=== PATIENT | female | born 1935 | race Caucasian/White ===

== ENCOUNTER 2021-07-10 07:48 | Outpatient (CLI) | payer MEDICARE, MEDICAID, SELFPAY ==
--- NOTE | 2021-07-10 08:37 | NMCV_ITS ---
NM festus perf SPECT r/s* [id number] Chen Blakely Age: 86 Gender: F : 1935 Exam Date: 07/10/2021 08:37 Ordering Phys: Noni Brantley CYANIDE FURNACE OPERATOR Technologist: ALISA Plasencia Exam Location: [facility] Indications: CHEST PAIN STRESS TEST Please see separate stress test report in [facility] for full findings IMAGE PROTOCOL Rest/Stress 1 Lexiscan Day Radiopharmaceutical Dose (mCi) Administration Site Administered by Rest: Tc-99m 10.9 IV ALISA Mckeon Sestamibi Stress:Tc-99m 33.0 IV ALISA Canales Sestamibi Rest: 10-Jul-2021 60 Discovery 630 Stress: 10-Jul-2021 30 Discovery 630 0.4mg Lexiscan. Images obtained in supine and prone position. SPECT RESULTS Technical Quality: Good Raw Data Analysis: Normal Image Corrections: No attenuation or motion correction applied Summed Stress Score: 20 Summed Rest Score: 10 Summed Difference Score: 10 PERFUSION FINDINGS Moderate to large area of moderate to severely decreased tracer uptake in the mid and apical inferior, mid inferoseptal, mid anterolateral and all the apical segments. Significant reversibility was noted in these regions. FUNCTIONAL RESULTS (calculated via Gated SPECT) Stress Image LV EF (%): 58 Stress EDV (mL):78 TID: 1.19 Stress ESV (mL):33 FUNCTIONAL FINDINGS: Segmental wall motion analysis revealing mild diffuse hypokinesia of the LV apex IMPRESSIONS 1. Myocardial perfusion imaging revealing moderate to large area of moderately severe decreases uptake in the inferior, inferoseptal, anteroseptal and all the apical segments with significant reversibility, suggestive of myocardial scarring with ischemia in the distribution of the right coronary artery and the left anterior descending arteries predominantly with some involvement of the circumflex artery. 2. Normal LV ejection fraction 58%. 3. LV wall motion analysis revealing mild diffuse hypokinesia of the LV apex. 4. Normal LV volume. 5. Elevated transient ischemic dilatation ratio also may suggest endocardial ischemia. No similar previous studies are available for comparison Dr Sheba Cortez MD [facility] (Electronically Signed) Final Date: 10 July 2021 14:56 S
[2021-07-10 08:38] VITALS: BMI 24.7
[2021-07-10 10:37] VITALS: BP 121/67; PULSE 81
[2021-07-10] MEDS: regadenoson 0.4 Mg/5 ml Syringe IVP (10:37)
== END 2021-07-10 07:49 | disposition home or self-care (01) ==
LOC: RAD 08:05
PROVIDERS: PCP Nurse Practitioner Family; Visit Provider Nurse Practitioner Family
DX: R07.9 Chest pain, unspecified (principal); R06.02 Shortness of breath
CPT/HCPCS: 78452; 93017; A9500; J2785

== ENCOUNTER 2021-07-11 10:58 | Inpatient (IN) | payer MEDICARE, MEDICAID, SELFPAY ==
--- NOTE | 2021-07-11 11:09 | XR_ITS ---
WS: [id number] PORTABLE CHEST HISTORY: chest pain COMPARISON: 12/18/2015 Lungs are clear and well expanded. Mild pleural thickening at the apices bilaterally. Similar to the prior study. No pleural effusion or pneumothorax. Cardiac size: Normal. Mediastinum/Aorta: Mildly ectatic aorta. No mediastinal widening. Bones are demineralized and osteopenic. 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 XR/XR chest 1V portable [id number] IMPRESSION: No acute cardiopulmonary disease. Stable chest.
--- NOTE | 2021-07-11 11:09 | ECG_ITS ---
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: : 1935 Requested By: Helena Fernandez Order Number: [id number] Reading MD: ELIJAH HERNÁNDEZ Measurements Intervals [place] Rate: 67 P: 48 NV: 188 QRS: 11 QRSD: 110 T: -60 QT: 427 QTc: 453 Interpretive Statements SINUS RHYTHM WITH OCCASIONAL VENTRICULAR PREMATURE COMPLEXES ST DEVIATION AND MODERATE T-WAVE ABNORMALITY, CONSIDER ANTEROLATERAL ISCHEMIA [-0.1+ mV T-WAVE IN V3-V6] ST DEVIATION AND MODERATE T-WAVE ABNORMALITY, CONSIDER INFERIOR ISCHEMIA [-0.1+ mV T-WAVE IN II/aVF] Compared to ECG 12/18/2015 11:36:22 Ventricular premature complex(es) now present T-wave abnormality now present Possible ischemia now present Electronically Signed On 07-12-2021 17:45:59 HAND BOBBIN CLEANER by ELIJAH HERNÁNDEZ [id number]
[2021-07-11 11:11] VITALS: BP 171/83; PULSE 71; RESP 16; TEMP 36.8; O2SAT 96
--- NOTE | 2021-07-11 11:28 | W.ED.CHESTPA ---
HPI - Chest Pain General: Chief Complaint: Chest Pain Stated Complaint: Pain across chest, stress test yesterday Time Seen by Provider: 07/11/21 11:18 Source: patient Mode of arrival: ambulatory History of Present Illness: 86-year-old female presents emergency room with complaints of chest discomfort. Is difficult to get her is very specific at all. Try to get a grasp on when she started getting increased chest discomfort. She does not really understand the question states she has had chest discomfort since the first of the month. When I asked her if she had any chest discomfort at the end of her stress test she said no but had some when she woke up at 1:00 this morning. But she states she did not think it caused her to wake up. She states she almost always has chest discomfort at the same level and goes back to it having started the first of the year. She does get radiation of the discomfort into the left side of her neck at times not into the arms. She states she is chronically short of breath and that has not really changed at all she has not been diaphoretic with no nausea or vomiting. She not had any previous known coronary artery disease. Is difficult to get her to rate it with a number for her discomfort. When pressed further I get the sense that the biggest reason she came into my she received a call nurse practitioner and was told that the stress test that she took yesterday was positive. MD complaint: chest discomfort Onset (ago): week(s) Timing of current episode: episodic Prior episodes: Yes Onset: during rest Pain location: substernal and left chest Pain radiation: neck Severity: mild Quality: tightness, aching and heaviness Relieving factors: nothing Exacerbating factors: nothing Context: other (Lexiscan sestamibi stress test done yesterday.) Associated symptoms: Deny abdominal pain, diaphoresis, dyspnea, fever(s), leg edema, nausea, palpitations, sense of impending doom, syncope or vomiting Treatment prior to arrival: none Review of Systems Const: Denies: fever(s) or diaphoresis ENMT: Denies: throat pain, ear or mastoid pain, nasal discharge or nasal congestion Card: Reports: chest pain; Denies: palpitations, edema or syncope Resp: Denies: dyspnea GI: Denies: abdominal pain, nausea or vomiting : Denies: flank pain, difficulty voiding, dysuria, urinary frequency or urinary urgency Skin/Breast: Denies: rash or pruritus PFSH ED PFSH: Medical History Hypertension Social History Alcohol intake: never Physical Exam Const: COMMON NORMALS: no acute distress GENERAL APPEARANCE: cooperative and comfortable ORIENTATION/CONSCIOUSNESS: Yes awake, Yes oriented to person, Yes oriented to place and Yes oriented to time HENMT: COMMON NORMALS: normocephalic, atraumatic and hearing grossly normal bilaterally HEAD & SCALP: normocephalic and atraumatic Neck/C-Spine: COMMON NORMALS: no JVD Lymph: LYMPHATIC: no lymphadenopathy noted and no lymphedema noted Resp: COMMON NORMALS: normal respiratory effort, No retractions, No use of accessory muscles and clear to auscultation bilaterally AUSCULTATION: clear to auscultation bilaterally Cardio: COMMON NORMALS: no JVD, regular rate, regular rhythm and No murmurs present (Cardio) RATE: regular rate RHYTHM: regular rhythm GI: COMMON NORMALS: Soft to palpation and No hepatosplenomegaly present AUSCULTATION: Yes normoactive bowel sounds PALPATION: Yes Soft to palpation, No Tenderness to palpation present (GI), No Guarding due to palpation present (GI) and Yes No hepatosplenomegaly present Extremity: COMMON NORMALS: normal to inspection, capillary refill normal, no clubbing, cyanosis or edema, no calf tenderness and no pedal edema Neuro: SENSORIUM/ORIENTATION: Yes oriented to person, Yes oriented to place and Yes oriented to time Skin: COMMON NORMALS: no rashes or lesions noted GENERAL SKIN EXAM: no rashes or lesions noted Course Vital Signs: Vital signs: Vital Signs Temperature 97.2 F L 07/13/21 14:47 Pulse Rate 79 07/13/21 14:47 Respiratory Rate 20 H 07/13/21 14:47 Blood Pressure 168/88 07/13/21 14:47 Pulse Oximetry 97 07/13/21 14:47 MDM - Chest Pain Medical Decision Making Patient has ST depression on her initial EKG troponin is elevated. Chest pain resolved with nitro topically. Her first troponin is markedly elevated her second troponin is increased significantly from her base of her first with a positive delta troponin of 123. Discussed with hospitalist also discussed with Dr. Deluca on-call he advised to treat like an NSTEMI patient is still not having any ST elevation on her EKG at this pointShe does have anterior lateral ischemia with T wave inversion. Dr. Gonzales is aware and has reviewed the EKGs orders are written. Medical Records I reviewed the patient's medical records. Lab Data I reviewed the patient's lab results. : 07/13/21 04:17 07/13/21 04:17 Radiology Impressions Chest X-Ray 07/11/21 11:09 IMPRESSION: No acute cardiopulmonary disease. Stable chest. Laboratory Results WBC 8.6 10^3/uL (4.0-10.0) 07/11/21 11:23 RBC 4.34 10^6/uL (4.1-5.3) 07/11/21 11:23 Hgb 15.0 g/dL (11.5-15.3) 07/11/21 11:23 Hct 45.2 % (37.0-47.0) 07/11/21 11:23 MCV 104.1 fl (81-99) H 07/11/21 11:23 MCH 34.6 pg (28.0-34.0) H 07/11/21 11:23 MCHC 33.2 g/dL (30.0-36.0) 07/11/21 11:23 RDW 12.2 % (12.1-15.1) 07/11/21 11:23 Plt Count 248 10^3/cmm (130-400) 07/11/21 11:23 MPV 9.5 fL (7.4-10.4) 07/11/21 11:23 Neut % (Auto) 66.9 % 07/11/21 11:23 Lymph % (Auto) 24.9 % 07/11/21 11:23 [place] % (Auto) 6.5 % 07/11/21 11:23 Eos % (Auto) 0.9 % 07/11/21 11:23 Baso % (Auto) 0.5 % 07/11/21 11:23 Neut # (Auto) 5.75 10^3/uL (1.8-7.7) 07/11/21 11:23 Lymph # (Auto) 2.1 10^3/uL (0.8-4.8) 07/11/21 11:23 [place] # (Auto) 0.6 10^3/uL (0.2-0.9) 07/11/21 11:23 Eos # (Auto) 0.1 10^3/uL (0.0-0.8) 07/11/21 11:23 Baso # (Auto) 0.0 10^3/uL (0.0-0.1) 07/11/21 11:23 Nucleated RBC % (auto) 0 % 07/11/21 11:23 Nucleated RBCs # 0.0 /100WBC 07/11/21 11:23 Sodium 137 mmol/L (136-145) 07/11/21 12:04 Potassium 3.7 mmol/L (3.5-5.1) 07/11/21 12:04 Chloride 104 mmol/L (98-107) 07/11/21 12:04 Carbon Dioxide 21 mmol/L (22-29) L 07/11/21 12:04 Anion Gap 15.7 (5-19) 07/11/21 12:04 BUN 14 mg/dL (8-23) 07/11/21 12:04 Creatinine 0.6 mg/dL (0.5-0.9) 07/11/21 12:04 GFR Calculation Not Reportable 07/11/21 12:04 Glucose 106 mg/dL (65-115) 07/11/21 12:04 Estimat Average Glucose 111 07/11/21 11:23 Hemoglobin A1c 5.5 % (4.0-6.0) 07/11/21 11:23 Calculated Osmolality 285 mOsm/kg (285-295) 07/11/21 12:04 Calcium 8.4 mg/dL (8.5-10.5) L 07/11/21 12:04 Troponin T Baseline 445 ng/L (0-10) H* 07/11/21 12:04 Troponin T 120 Minute 567.8 ng/L (0-10) H 07/11/21 14:24 Delta Troponin T 122.8 ABS# (0-10) H* 07/11/21 14:24 NT-Pro-B Natriuret Pep 1993 pg/mL (0-450) H 07/11/21 12:04 Triglycerides 108 mg/dL (0-150) 07/11/21 12:04 Cholesterol 203 mg/dL (0-200) H 07/11/21 12:04 LDL Cholesterol, Calc 143 mg/dL (50-129) H 07/11/21 12:04 HDL Cholesterol 38 mg/dL (60-100) L 07/11/21 12:04 LDL/HDL Ratio 3.76 RATIO (0.00-3.22) H 07/11/21 12:04 Cholesterol/HDL Ratio 5.34 mg/dL (0.0-4.40) H 07/11/21 12:04 Discharge Plan Discharge Patient Disposition: Admitted As Inpatient Admit Provider: Ludy Centeno Clinical Impression: Unstable angina pectoris, Non-ST elevation ND (NSTEMI), Benign essential HTN Condition: Stable Discharge Diet: Cardiac, Low Salt and Low Cholesterol Discharge Activity: Increase activity as tolerated Coding Level of Care Code ED Major Account Representative for Elena Fwd Exam Comprehensive
[2021-07-11 11:34] LABS: Basophils % 0.5 %; Eosinophils # 0.1 10^3/uL (0.0-0.8); Eosinophils % 0.9 %; Hematocrit 45.2 % (37.0-47.0); Lymphocytes # 2.1 10^3/uL (0.8-4.8); Lymphocytes % 24.9 %; Mean Corpuscular HGB Conc 33.2 g/dL (30.0-36.0); Mean Corpuscular Hemoglobin 34.6 pg (28.0-34.0); Mean Corpuscular Volume 104.1 fl (81-99); Mean Platelet Volume 9.5 fL (7.4-10.4); Monocytes # 0.6 10^3/uL (0.2-0.9); Monocytes % 6.5 %; Neutrophils # 5.75 10^3/uL (1.8-7.7); Neutrophils % 66.9 %; Nucleated Red Blood Cells % 0 %; Platelet Count 248 10^3/cmm (130-400); Red Blood Count 4.34 10^6/uL (4.1-5.3); Red Cell Distribution Width 12.2 % (12.1-15.1); White Blood Count 8.6 10^3/uL (4.0-10.0)
[2021-07-11] MEDS: aspirin 81 mg Chew Tablet 324 MG PO (11:48)
[2021-07-11 11:49] VITALS: BP 175/78; PULSE 71; RESP 14; O2SAT 94
--- NOTE | 2021-07-11 11:50 | PC.NURSE ---
Continuous cardiac, BP, and SpO2 monitoring initiated upon arrival.
[2021-07-11 13:03] LABS: Anion Gap 15.7 (5-19); Blood Urea Nitrogen 14 mg/dL (8-23); Calcium 8.4 mg/dL (8.5-10.5); Carbon Dioxide 21 mmol/L (22-29); Chloride 104 mmol/L (98-107); Glucose 106 mg/dL (65-115); Osmolality Calculated 285 mOsm/kg (285-295); Potassium 3.7 mmol/L (3.5-5.1); Sodium 137 mmol/L (136-145)
[2021-07-11 13:08] LABS: Troponin(5th) Baseline 445 ng/L (0-10)
--- NOTE | 2021-07-11 13:09 | ECG_ITS ---
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: : 1935 Requested By: Helena Fernandez Order Number: [id number] Reading MD: ELIJAH HERNÁNDEZ Measurements Intervals [place] Rate: 65 P: 38 VT: 176 QRS: 12 QRSD: 94 T: 254 QT: 419 QTc: 439 Interpretive Statements SINUS RHYTHM WITH OCCASIONAL VENTRICULAR PREMATURE COMPLEXES ST DEVIATION AND MODERATE T-WAVE ABNORMALITY, CONSIDER ANTEROLATERAL ISCHEMIA [-0.1+ mV T-WAVE IN V3-V6] ST DEVIATION AND MODERATE T-WAVE ABNORMALITY, CONSIDER INFERIOR ISCHEMIA [-0.1+ mV T-WAVE IN II/aVF] Compared to ECG 12/18/2015 11:36:22 Ventricular premature complex(es) now present T-wave abnormality now present Possible ischemia now present Electronically Signed On 07-12-2021 17:47:27 FEATHER DRYING MACHINE OPERATOR by ELIJAH HERNÁNDEZ [id number]
[2021-07-11] MEDS: heparin 5,000 unit/mL INJ 1 mL 4000 UNIT IVP (13:21)
[2021-07-11] MEDS: heparin drip 25,000 UNIT/500 ML PREMIX 16.89 UNIT IV (13:21)
[2021-07-11] MEDS: nitroglycerin 1 gm/inch oint Pkt 1 INCH TOPICAL (13:21)
[2021-07-11 13:28] VITALS: BP 151/65; PULSE 70; RESP 18; O2SAT 95
[2021-07-11 15:22] LABS: Troponin 5 2HR 567.8 ng/L (0-10); Troponin 5 2HR Delta 122.8 ABS# (0-10)
--- NOTE | 2021-07-11 16:57 | PM.HP ---
Providers/Chief Complaint Admitting Physician: Ludy Centeno MD Primary Care Provider: GARIMA Le Chief Complaint: Pain across chest, stress test yesterday History of Present Illness Chen Blakely is a 86 year old female Who has been experiencing progressively increasing shortness of breath and on and off chest pain since beginning of this month, underwent a stress test as outpatient on the recommendation of her primary care provider yesterday which turned out to be abnormal. Presented to the ER due to chief complaint of chest comfort and inability to breathe. She describes this as a central chest pressure, nonradiating, started to be worse at around 1 AM this morning. She does not have any past history of known coronary artery disease. When asked specifically about pain, describes the sensation as mostly being short of breath. No swelling recently in lower extremities around the face. Presented to the ER where and she was noted to have NSTEMI. EKG shows T wave inversion in leads V3 through V6. trop baseline 445, 2 hr delta 122. Review of Systems General: Reports: 10 or more systems reviewed and unremarkable except in HPI and below Const: Denies: fever(s), chills or body aches Eyes: Denies: change in vision, blurry vision or photophobia ENMT: Reports: hoarseness; Denies: throat pain, enlarged tonsils, odynophagia or nasal congestion Card: Denies: chest pain, palpitations, irregular heart rhythm, edema, swelling of feet/ankles, lightheadedness, pre-syncope, dyspnea on exertion or orthopnea Resp: Denies: dyspnea, productive cough, non-productive cough, wheezing, stridor, pain on inspiration, change in phlegm color, hemoptysis or chest congestion GI: Denies: abdominal pain, nausea, vomiting, hematemesis, coffee ground emesis, dysphagia, heartburn, diarrhea, constipation, GI cramping, change in stool character, hematochezia or melena : Denies: flank pain, difficulty voiding, dysuria, urinary frequency, urinary urgency, urinary hesitancy or hematuria Musc: Denies: neck pain, back pain, extremity pain, joint swelling, joint warmth or deformity Neuro: Denies: headache(s), numbness in extremities, weakness in extremities, sensory changes, difficulty walking, frequent falls, dizziness, vertigo, behavioral changes, Slurred speech present or seizure-like activity Psych: Denies: anxiety, depression, suicidal ideation or homicidal ideation Endo: Denies: polyuria, polydipsia, tired all the time, cold intolerance or hot flashes Gabriel/Lymph: Denies: easy bruising or easy bleeding Medications/Allergies Home Medications Medication Instructions Recorded Confirmed Last Taken Type atenolol 25 mg tablet 12.5 mg PO QAM 07/11/21 07/11/21 07/11/21 History cetirizine 10 mg tablet 10 mg PO EVERY OTHER DAY 07/11/21 07/11/21 Unknown History dicyclomine 10 mg capsule 10 mg PO QAM 07/11/21 07/11/21 07/11/21 History docusate sodium 100 mg capsule 100 mg PO EVERY OTHER DAY PRN 07/11/21 07/11/21 Unknown History (Colace) fluticasone propionate 50 See Rx Instructions .ROUTE .COMPLEX 07/11/21 07/11/21 Unknown History mcg/actuation nasal spray,suspension ibuprofen 200 mg tablet 400 mg PO BID@07/11/21 07/11/21 07/10/21 History multivit with 1 tab PO DAILY@07/11/21 07/11/21 07/10/21 History flruijug-hjtj-BW-lutein 8 mg iron-400 mcg-300 mcg tablet (Centrum Silver Women) omeprazole 20 mg capsule,delayed 20 mg PO DAILY@07/11/21 07/11/21 07/10/21 History release spironolactone 25 mg tablet 25 mg PO QAM 07/11/21 07/11/21 07/11/21 History Allergies Allergy/AdvReac Type Severity Reaction Status Date / Time No Known Allergies Allergy Verified 07/11/21 14:19 PFSH Acute PFSH: Medical History Hypertension Social History Alcohol intake: never Vitals/I&O/Wt Last Vital Signs Temp 98.3 F 07/11/21 11:11 Pulse 70 07/11/21 13:28 Resp 18 07/11/21 13:28 BP 151/65 07/11/21 13:28 Pulse Ox 95 07/11/21 13:28 Weight last 48 hrs Weight 60.328 kg Physical Exam Narrative: EXAM NARRATIVE: General: No acute distress, AO x3 HEENT: PERRLA, pupils bilaterally equal and reactive, pallors not present Chest: Normal vesicular breath sounds, no added sounds, equal good air entry bilaterally CVS: S1-S2 regular, no murmurs, no tachycardia, no gallops, no rubs Abdomen: Soft, nontender, no organomegaly, bowel sounds present Neuro: No focal deficits, no facial deformity, AO x3, power 5/5 in all limbs Extremities: no edema,clubbing or cyanosis Data : 07/11/21 11:23 07/11/21 12:04 Other data: IMPRESSIONS ?1.? Myocardial perfusion imaging revealing moderate to large area of moderately ?severe decreases uptake in the inferior, inferoseptal, anteroseptal and all the ?apical segments with significant reversibility, suggestive of myocardial ?scarring with ischemia in the distribution of the right coronary artery and the ?left anterior descending arteries predominantly with some involvement of the ?circumflex artery. ?2.? Normal LV ejection fraction 58%. ?3.? LV wall motion analysis revealing mild diffuse hypokinesia of the LV apex. ?4.? Normal LV volume. ?5.? Elevated transient ischemic dilatation ratio also? may suggest endocardial ?ischemia.? ?No similar previous studies are available for comparison A&P Assessment and plan (1) NSTEMI (non-ST elevated myocardial infarction): Patient presenting today with chest pain and feeling of dyspnea. Found to have NSTEMI with EKG changes as described above and significant elevation of troponin in the 400 range and +2-hour delta. Pain is currently well controlled, patient feels better after being placed on a nitro patch and given some morphine. She had abnormal stress test on July 10, results as noted above. Started on a heparin infusion in the ER which will be continued. Aspirin 324 mg given, continue aspirin 81 mg p.o. daily. Start atorvastatin 40 mg p.o. daily. Cardiology consult to assess for possible angiogram and intervention. Nitropatch 1 inch topical every 6 hours. Currently saturating well 95% on room air Check lipid panel HbA1c. Continue home dose of atenolol. Status: Acute Attestations Medical Necessity Statement*: Patient will require greater than 2 midnight admission for management of NSTEMI, possible cardiac cath. Coding Level of Care Code Acute Aircraft Stress Analyst for Chg Fwd Diagnoses NSTEMI (non-ST elevated myocardial infarction) I21.4
--- NOTE | 2021-07-11 17:09 | ECG_ITS ---
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1935 Requested By: Helena Fernandez Order Number: [id number] Reading MD: ELIJAH HERNÁNDEZ Measurements Intervals [place] Rate: 70 P: 49 [place]: 166 QRS: -6 QRSD: 98 T: -51 QT: 406 QTc: 439 Interpretive Statements SINUS RHYTHM WITH OCCASIONAL VENTRICULAR PREMATURE COMPLEXES MODERATE T-WAVE ABNORMALITY, CONSIDER ANTEROLATERAL ISCHEMIA [-0.1+ mV T-WAVE IN V3-V6] MODERATE T-WAVE ABNORMALITY, CONSIDER INFERIOR ISCHEMIA [-0.1+ mV T-WAVE IN II/aVF] Compared to ECG 07/11/2021 13:07:16 No significant changes Electronically Signed On 07-12-2021 17:47:05 BUSINESS SYSTEMS ADVISOR by ELIJAH HERNÁNDEZ [id number]
[2021-07-11 18:09] LABS: Chol HDL Ratio 5.34 mg/dL (0.0-4.40); Cholesterol 203 mg/dL (0-200); HDL Cholesterol 38 mg/dL (60-100); LDL Cholesterol Calculated 143 mg/dL (50-129); LDL HDL Ratio 3.76 RATIO (0.00-3.22); NT Pro B Type Natriuretic Pept 1993 pg/mL (0-450); Triglycerides 108 mg/dL (0-150)
[2021-07-11 19:32] LABS: Troponin 5 6HR 597.6 ng/L (0-10); Troponin 5 6HR Delta 152.6 ng/L (0-12)
[2021-07-11 19:41] LABS: Estmated Average Glucose 111; Hemoglobin A1C 5.5 % (4.0-6.0)
[2021-07-11 20:18] LABS: Partial Thromboplastin Time 173.2 SECONDS (23.9-36.7)
[2021-07-11 20:19] VITALS: BP 143/73; PULSE 81; RESP 17; O2SAT 91
--- NOTE | 2021-07-11 20:31 | PC.NURSE ---
Informed Dr Cervantes of PTT of 173.2. Patient currently on heparin drip. Received telephone orders to stop drip for 4 hours and recheck PTT at that time. Will resume at current rate after PTT without bolus. RBVO
[2021-07-11] MEDS: atorvastatin 40 mg Tablet PO (20:54)
[2021-07-11] MEDS: acetaminophen 325 mg Tablet 650 MG PO (20:54)
--- NOTE | 2021-07-11 20:56 | PM.CONSULT ---
Providers/Reason For Consult Consulting Physician/Specialty*: Cardiology Reason for Consult*: Non-ST elevation [place] Requesting Physician: Dr. Centeno Attending Physician: Ludy Centeno MD Primary Care Provider: GARIMA Le History of Present Illness History of Present Illness Chen Blakely is a 86 year old female past medical history significant for hypertension hyperlipidemia who for anginal symptoms underwent stress test yesterday which showed Ischemia in the region of RCA and LAD territory upon return to home started having more frequent chest pains with shortness of breath. Today when pain became more consistent she came to the ER she was noted to have T wave inversion in anterolateral leads at the same time cardiac markers become positive suggestive of non-ST elevation SD. Patient was treated as per ACS protocol, currently she is chest pain-free. We are planning to proceed with left heart cath. Review of Systems General: Reports: 10 or more systems reviewed and unremarkable except in HPI and below Const: Denies: fever(s), chills, body aches or diaphoresis Eyes: Denies: change in vision, blurry vision or photophobia ENMT: Reports: hoarseness; Denies: throat pain, enlarged tonsils, odynophagia, ear or mastoid pain, nasal discharge or nasal congestion Card: Denies: chest pain, palpitations, irregular heart rhythm, edema, swelling of feet/ankles, lightheadedness, syncope, pre-syncope, dyspnea on exertion or orthopnea Resp: Denies: dyspnea, productive cough, non-productive cough, wheezing, stridor, pain on inspiration, change in phlegm color, hemoptysis or chest congestion GI: Denies: abdominal pain, nausea, vomiting, hematemesis, coffee ground emesis, dysphagia, heartburn, diarrhea, constipation, GI cramping, change in stool character, hematochezia or melena : Denies: flank pain, difficulty voiding, dysuria, urinary frequency, urinary urgency, urinary hesitancy or hematuria Musc: Denies: neck pain, back pain, extremity pain, joint swelling, joint warmth or deformity Skin/Breast: Denies: rash or pruritus Neuro: Denies: headache(s), numbness in extremities, weakness in extremities, sensory changes, difficulty walking, frequent falls, dizziness, vertigo, behavioral changes, Slurred speech present or seizure-like activity Psych: Denies: anxiety, depression, suicidal ideation or homicidal ideation Endo: Denies: polyuria, polydipsia, tired all the time, cold intolerance or hot flashes Gabriel/Lymph: Denies: easy bruising or easy bleeding Medications/Allergies Home Medications Medication Instructions Recorded Confirmed Last Taken Type atenolol 25 mg tablet 12.5 mg PO QAM 07/11/21 07/11/21 07/11/21 History cetirizine 10 mg tablet 10 mg PO EVERY OTHER DAY 07/11/21 07/11/21 Unknown History dicyclomine 10 mg capsule 10 mg PO QAM 07/11/21 07/11/21 07/11/21 History docusate sodium 100 mg capsule 100 mg PO EVERY OTHER DAY PRN 07/11/21 07/11/21 Unknown History (Colace) fluticasone propionate 50 See Rx Instructions .ROUTE .COMPLEX 07/11/21 07/11/21 Unknown History mcg/actuation nasal spray,suspension ibuprofen 200 mg tablet 400 mg PO BID@07/11/21 07/11/21 07/10/21 History multivit with 1 tab PO DAILY@07/11/21 07/11/21 07/10/21 History [id number] 8 mg iron-400 mcg-300 mcg tablet (Centrum Silver Women) omeprazole 20 mg capsule,delayed 20 mg PO DAILY@07/11/21 07/11/21 07/10/21 History release spironolactone 25 mg tablet 25 mg PO QAM 07/11/21 07/11/21 07/11/21 History aspirin 81 mg tablet,delayed 81 mg PO DAILY #90 tab 07/13/21 Unknown Rx release clopidogrel 75 mg tablet 75 mg PO DAILY #90 tab 07/13/21 Unknown Rx pantoprazole 40 mg tablet,delayed 40 mg PO DAILY #90 tab 07/13/21 Unknown Rx release (Protonix) atorvastatin 40 mg tablet See Rx Instructions .ROUTE 07/14/21 Unknown Rx .COMPLEX #90 tab lisinopril 5 mg tablet See Rx Instructions .ROUTE 07/14/21 Unknown Rx .COMPLEX #90 tab Allergies Allergy/AdvReac Type Severity Reaction Status Date / Time No Known Allergies Allergy Verified 07/11/21 14:19 Current Medications Generic Name Dose Route Start Last Admin Trade Name Freq PRN Reason Stop Dose Admin Acetaminophen 650 mg 07/11/21 16:57 07/11/21 20:54 Acetaminophen 325 Mg Tablet PO 650 mg Q6H PRN Administration Mild/Mod Pain Or Temp >/= 101 Atorvastatin Calcium 40 mg 07/11/21 21:00 07/11/21 20:54 Atorvastatin 40 Mg Tablet PO 40 mg BEDTIME CHICO Administration Heparin Sodium/Sodium Chloride 25,000 unit in 500 mls @ 0 mls/hr 07/11/21 13:15 07/11/21 20:31 Heparin Drip IV 0 unit/kg/hr .Q0M CHICO 0 mls/hr Titration Protocol Per Protocol Nitroglycerin 0.5 inch 07/11/21 19:06 07/11/21 20:55 Nitroglycerin 1 Gm/Inch Oint Pkt TOPICAL Not Given Q6H CHICO PFSH Acute PFSH: Medical History Hypertension Social History Alcohol intake: never Vitals/I&O/Wt Last Vital Signs Temp 98.3 F 07/11/21 11:11 Pulse 81 07/11/21 20:19 Resp 17 07/11/21 20:19 BP 143/73 07/11/21 20:19 Pulse Ox 91 07/11/21 20:19 07/11/21 07/11/21 07/11/21 06:59 14:59 22:59 Intake Total 121.045 / 121.045 Balance 121.045 / 121.045 Weight last 48 hrs Weight 133 lb Physical Exam Chest: OTHER: GENERAL: Patient is alert, awake and oriented x3. NECK: No jugular vein distension. HEENT: No cyanosis. No icterus. No pallor. HEART: Regular S1 and S2. No murmur, rub or gallop. LUNGS: Clear to auscultate bilaterally. ABDOMEN: Soft, nontender and nondistended. Positive bowel sounds. No guarding, rebound or tenderness. CENTRAL NERVOUS SYSTEM: Grossly nonfocal. EXTREMITIES: Lower extremities without edema bilaterally. Data : 07/13/21 04:17 07/13/21 04:17 A&P Assessment and plan (1) NSTEMI (non-ST elevated myocardial infarction): Patient was ruled in for acute coronary syndrome continue aspirin statin beta-geo, will load her with the Plavix. Echocardiogram will be obtained for LV function. We will proceed with left heart cath/PCI if indicated in the morning. Further plan will be devised as per progress of the patient. Patient has been explained and all risk benefit and alternative for the procedure. She would like to proceed with it Status: Resolved (2) Hypertension: Well-controlled continue medicine. Status: Acute Consult Attestations Medical Necessity Statement: Patient require continuation hospitalization for above defined care Coding Level of Care Code New Pt Acute Fitness Club Manager for Chg Fwd Patient Type New History Detailed Exam Detailed Medical Decision Making Moderate Complexity Diagnoses NSTEMI (non-ST elevated myocardial infarction) I21.4 Hypertension I10
[2021-07-11 21:46] VITALS: BMI 23.9
[2021-07-11 22:05] VITALS: PULSE 79
[2021-07-11] MEDS: clopidogrel 300 mg Tablet PO (22:28)
[2021-07-11 22:42] VITALS: BP 139/70; PULSE 72; RESP 22; O2SAT 93
[2021-07-12] VITALS (49 sets, daily range): BP systolic 105–164; BP diastolic 62–86; PULSE 66–92; RESP 13–29; TEMP 36.2–37.4; O2SAT 86–95
[2021-07-12 01:22] LABS: Basophils # 0.1 10^3/uL (0.0-0.1); Basophils % 0.5 %; Eosinophils # 0.2 10^3/uL (0.0-0.8); Eosinophils % 1.6 %; Hematocrit 36.3 % (37.0-47.0); Hemoglobin 12.3 g/dL (11.5-15.3); Lymphocytes # 2.8 10^3/uL (0.8-4.8); Lymphocytes % 28.7 %; Mean Corpuscular HGB Conc 33.9 g/dL (30.0-36.0); Mean Corpuscular Volume 103.4 fl (81-99); Mean Platelet Volume 9.9 fL (7.4-10.4); Monocytes # 0.7 10^3/uL (0.2-0.9); Monocytes % 6.8 %; Neutrophils % 62.1 %; Nucleated Red Blood Cells % 0 %; Platelet Count 203 10^3/cmm (130-400); Red Blood Count 3.51 10^6/uL (4.1-5.3); Red Cell Distribution Width 12.3 % (12.1-15.1); White Blood Count 9.8 10^3/uL (4.0-10.0)
[2021-07-12 01:29] LABS: Partial Thromboplastin Time 45.3 SECONDS (23.9-36.7)
[2021-07-12 01:32] LABS: Chloride 107 mmol/L (98-107); Potassium 4.3 mmol/L (3.5-5.1); Sodium 141 mmol/L (136-145)
[2021-07-12 01:44] LABS: Alanine Aminotransferase 18 U/L (0-33); Albumin Level 3.4 g/dL (3.5-5.2); Alkaline Phosphatase 48 IU/L (35-105); Anion Gap 15.9 (5-19); Aspartate Amino Transferase 33 U/L (0-32); Blood Urea Nitrogen 17 mg/dL (8-23); Calcium 8.8 mg/dL (8.5-10.5); Carbon Dioxide 22 mmol/L (22-29); Globulin 2.1 g/dL (1.3-4.6); Glucose 106 mg/dL (65-115); Osmolality Calculated 288 mOsm/kg (285-295); Total Bilirubin 0.3 mg/dL (0.15-1.2); Total Protein 5.5 g/dL (6.6-8.7)
--- NOTE | 2021-07-12 02:07 | PC.NURSE ---
PTT 45.3 Restarted heparin drip at 17ml/hr with no bolus given per Dr Cervantes.
[2021-07-12] MEDS: spironolactone 25 mg Tablet PO (05:06)
[2021-07-12] MEDS: diphenhydrAMINE 50 mg Capsule PO (07:53)
--- NOTE | 2021-07-12 07:53 | XACV_ITS ---
Exam Room: [facility] Ht: 157 cm Wt: 59 kg BSA: 1.62 m2 Gender: Female : 1935 Exam Priority: Routine Procedure(s): Procedure Description: Diagnostic procedure Procedure Description: PCI procedure Procedure Description: Drug Eluting Coronary Stent Procedure Description: PTCA Procedure Description: Miscellaneous Procedure Description: ACT Procedure Description: Coronary Angiography Diagnostic Cath Status: Urgent Diagnostic Findings * Left Main has no disease. * Circumflex has no disease. * Proximal Left Anterior Descending: subtotal occlusion, RONEY: 2 flow. * Mid Left Anterior Descending to Distal Left Anterior Descending: subtotal occlusion, RONEY: 0 flow. * Mid Right Coronary Artery: severe 90% stenosis, RONEY: 3 flow. * Distal Right Coronary Artery to Distal Left Anterior Descending collaterallization. * Coronary angiography shows left dominance. PCI Status: Urgent PCI Indication: NSTE - ACS Interventional Findings * Proximal Left Anterior Descendin% stenosis treated with a AB TREK 2.50X12 RX BALLOON, and NADEGE Lacy JP 2.75X15 RADHA. 0% residual stenosis, RONEY: 3 flow. Conclusions 1. There is subtotal occlusion coronary artery disease with two vessel disease. 2. Proximal Left Anterior Descending was treated with a Balloon, and Drug Eluting Stent. 3. Left anterior descending artery is chronically occluded in the mid to distal segment which is an atretic vessel. Diagonal branch is a large palpable vessel. Proximal LAD has significant 99% subtotal occlusion with RONEY II flow. Left main and circumflex does not have significant stenosis. RCA is nondominant occluded vessel in the mid with [id number] collaterals.. Recommendations * 1-Return to inpatient for close monitoring and routine cath care 2-Risk factor modification for secondary prevention 3-Statin and aspirin 81 mg life--long, if tolerated 4-Continue Plavix 75mg p.o. daily for at least one year. We will assess at the end of one year again to continue if further or not 5-Continue optimal medical management 6-Follow up with cardiology in four weeks and your primary care in 10 days. Interventional RX Recommendation: PCI w/o planned CABG Diagnostic RX Recommendation: PCI w/o planned CABG Pressures Phase:Rest AO : 138 / 65 ( 96 ) @ 7:48:00 AM 145 / 66 ( 98 ) @ 7:53:00 AM 159 / 76 ( 109 ) @ 8:00:00 AM Clinical Evaluation EBL: 5mL-10mL Procedural Details Procedure Consent Obtained. Pre-Procedure Time Out. Identified patient by full name and date of as verbalized by the patient/guarantor. Does the consent match the physician's order: Yes. Accurate & Complete Informed Consent: Yes. Inpatient/Outpatient History & Physical on Chart: Yes. If H&P is completed, is and addenduem needed: No. Visualize and Verify Site with Patient/Guarantor: N/A. Relevant Radiology Images available: Yes. The risks, benefits, and alternatives of sedation and/or procedure were discussed by physician. The patient agrees to continue. Procedure started. [facility] Clinical Fraility Score: 4: Vulnerable. Fundraising Assistant Indications: ACS > 24 hours. Chest Pain Symptom Assessment: Typical Angina Symptoms. Cardiovascular Instability: No. Correct patient, site and procedure confirmed by cath team. Current diagnosis: NSTEMI. PERRLA. Strong, equal hand lean consultant bilaterally. Lungs clear x 5 lobes. IV Site on Arrival: 18 gauge in the left wrist. IV Fluids: 0.9% NaCl at KVO. 0 mL infused prior to cath lab radiology technician. Pre Procedural Pulses: bilateral radial was 2+. Oxygen started at 2liters/min via nasal canula. right groin was prepped with chloroprep then draped in the usual sterile fashion. right radial was prepped with chloroprep then draped in the usual sterile fashion. Physician notified. Baseline sample Acquired. HR: 83 BPM. Equipment: 6F - Radial. Cardiac Cath Pack. ACIST Manifold Kit Model BT 2000. Heparinized Saline (2 units/mL), 1000 mL bag. Physician arrived. Yelena Barnes RN circulating. Physician scrubbed in. Immediate Pre-Procedure Time Out. Correct Patient: Yes; Correct Procedure: Yes; Correct Site: Yes; Correct Patient Position: Yes; Correct Supplies: Yes; Dried Flammable Prep: Yes; Blood Products Available: N/A. Lidocaine 1% infiltrated to the right radial. Arterial access obtained. Current Diagnosis : NSTEMI. A 5 bulgarian TIG catheter in over wire. Unable to navigate TIG catheter due to tourtiosity. Will attempt right femoral access. Add inventory: 6 fr sheath, micropuncture kit. Catheter removed over the standard wire. Lidocaine 1% infiltrated to the right groin. Arterial access obtained with micropuncture set. A 5 bulgarian JL4 catheter in over wire. Multiple views taken of left coronary artery. Catheter removed over the standard wire. A 5 bulgarian JR4 catheter in over wire. Multiple views taken of right coronary artery. Catheter removed over the standard wire. Diagnostic complete, starting intervention. 6 bulgarian XB 3 guide catheter was inserted over the wire. Runthrough guidewire was advanced through the guide catheter to lesion in the prox LAD. Inflation number : 1 A AB TREK 2.50X12 RX BALLOON was prepped and advanced across the Prox LAD , then inflated to 15 SHAE for 0:17 seconds. Balloon out. Inflation Number : 2 A NADEGE Lacy JP 2.75X15 RADHA -Lot Number# [id number] was prepped and advanced across the Prox LAD. The stent was deployed at 16 SHAE for 0:25 seconds. exp 2022-02-13. Stent balloon and wire out. NC Euphora 3.0 x 12 balloon in and unable to cross. Removed intact. Cineography performed. ACT drawn. Results seconds. Therapeutic limits - pre-heparin administration 90-150 seconds and monitoring heparin during a vascular procedure >250 seconds. Wire out. Guide catheter out. A Right femoral angiogram was performed to determine safe placement of closure device. A TR Band was successful obtaining hemostatsis at the Right Radial artery insertion site. A Suture was successful obtaining hemostatsis at the Right Femoral artery insertion site. TR band placed. Hemostasis obtained. Sheath(s) sutured into position with 2-0 silk and sterile 4x4's and Op-site applied over the site. No oozing or signs and symptoms of hematoma noted. Arterial sheath flushed and connected to tranducer and pressure bag with heparinized saline. Post Procedure: bilateral dorsalis pedis pulse 1+. Post Procedure: bilateral posterior tibial pulse 1+. PERRLA. Strong, equal hand lean consultant bilaterally. No VTE prophylaxis required. Medication's Wasted: Nitro = 49.8 mg. Medication's Wasted: Heparin = 1000 units. Total IV fluids: 104 mL. PCI Indication: NSTE. Post-op diagnosis: PTCA and Drug Eluting stenting of the Proximal LAD, Chronically acc RCA with collateral flow. Complications: none. Estimated blood loss: 5mL-10mL. Responsiveness - Normal response to verbal stimuli; alert and oriented, PERRLA. Airway - Unaffected, no intervention required; spontaneous ventilation. Circulation: W/N/L, pulses unchanged. Nausea/Vomiting: No. Procedure completed. Patient transferred by bed to 1st floor. Vital chart was stopped. Access Site Site: Right Radial artery Sheath Size: 6 Fr Hemostasis Method: TR Band Hemostasis Success: Successful Site: Right Femoral artery Sheath Size: 6 Fr Hemostasis Method: Suture Hemostasis Success: Successful Procedure Medications Start: 9:15 AM Stop: 9:15 AM Medication: Versed Amount: 1 mg Route: I.V. Start: 9:33 AM Stop: 9:33 AM Medication: Nitrogylcerin Amount: 200 mcg Route: I.A. Start: 9:53 AM Stop: 9:53 AM Medication: Heparin Amount: 7000 units Route: I.V. Start: 10:07 AM Stop: 10:07 AM Medication: Versed Amount: 1 mg Route: I.V. Start: 10:07 AM Stop: 10:07 AM Medication: Fentanyl Amount: 25 mcg Start: 10:25 AM Stop: 10:25 AM Medication: Heparin Amount: 1000 units Route: I.V. I, the attending physician, have reviewed and verified all procedure medications. Yes, all medications given per verbal order History/Risk Factors Hypertension: Yes Dyslipidemia: Yes Peripheral Arterial Disease (PAD): No Myocardial Infarction (FL): No Obesity: No Renal Disease: No Tobacco Use: Never Prior Interventions PCI: No CABG: No Valve Surgery: No Report Signatures Finalized by Onofre Gonzales MD on 07/28/2021 06:27 PM
[2021-07-12] MEDS: sodium chloride 0.9% 1,000 ML 50 ML IV (07:54)
--- NOTE | 2021-07-12 09:00 | PC.NURSE ---
Patient taken to heart landscape and yardwork laborer on bed.
[2021-07-12 09:10] LABS: Partial Thromboplastin Time 65.1 SECONDS (23.9-36.7)
--- NOTE | 2021-07-12 09:13 | W.PM.OPSUD ---
Surgery/Procedure H&P Update DATE OF PROCEDURE: July 12, 2021 DATE H&P PERFORMED: 07/11/21 H&P UPDATE INFORMATION: I have reviewed H&P completed within last 30 days, I have examined patient prior to procedure and No changes to prior documentation PRIMARY INDICATION FOR PROCEDURE: non-ST elevation [place] PLANNED PROCEDURE: Operation Date: 07/12/21 08:30 Proposed Procedures p Cardiac Catheterization(Left) - Onofre Gonzales MD AIRWAY EVAL/ANESTHESIA PLAN: ASA II, Risks, benefits & alternatives of sedation and/or procedure discussed and Patient agrees to continue as planned Related Problem List Diagnoses (1) NSTEMI (non-ST elevated myocardial infarction): Left heart cath, all risk benefit and alternative of the procedure including contrast-induced nephropathy major minor bleed stroke urgent emergent bypass surgery vascular surgery vascular injury hematoma was explained to the patient. She is a candidate for DAPT she would like to proceed with it. (2) Hypertension:
--- NOTE | 2021-07-12 10:12 | P.PN_ITS ---
Subjective Subjective: Interval history: No acute events overnight. Taken to Aluminum Fabrication Supervisor this morning. Denies any new complaints. Currently chest pain-free. Vitals/I&O/Wt Last Vital Signs Temp 99.3 F 07/12/21 07:22 Pulse 73 07/12/21 07:22 Resp 19 H 07/12/21 07:22 BP 147/79 07/12/21 07:22 Pulse Ox 94 07/12/21 07:22 07/11/21 07/12/21 07/12/21 22:59 06:59 14:59 Intake Total 361.045 / 361.045 0 / 0 Balance 361.045 / 361.045 0 / 0 Weight last 48 hrs Weight 59.375 kg Weight 59.375 kg Weight 60.328 kg Physical Exam Narrative: EXAM NARRATIVE: General: No acute distress, AO x3 HEENT: PERRLA, pupils bilaterally equal and reactive, pallors not present Chest: Normal vesicular breath sounds, no added sounds, equal good air entry bilaterally CVS: S1-S2 regular, no murmurs, no tachycardia, no gallops, no rubs Abdomen: Soft, nontender, no organomegaly, bowel sounds present Neuro: No focal deficits, no facial deformity, AO x3, power 5/5 in all limbs Extremities: no edema,clubbing or cyanosis Data : 07/12/21 00:50 07/12/21 00:50 A&P Assessment and plan (1) NSTEMI (non-ST elevated myocardial infarction): Patient presenting today with chest pain and feeling of dyspnea. Found to have NSTEMI with EKG changes as described above and significant elevation of troponin in the 400 range and +2-hour delta. Pain is currently well controlled, patient feels better after being placed on a nitro patch and given some morphine. She had abnormal stress test on July 10 continue aspirin 81 mg p.o. daily. Start atorvastatin 40 mg p.o. daily. Continue beta-blockers. Left heart cath today Status: Acute Attestations Medical Necessity Statement*: Left heart cath today Coding Level of Care Code Acute Educational Assistant for Elena Au Diagnoses NSTEMI (non-ST elevated myocardial infarction) I21.4
--- NOTE | 2021-07-12 10:46 | PM.PN ---
Subjective Subjective: Interval history: Status post PCI to proximal LAD. She was noted to have chronically occluded atretic mid LAD but large diagonal branch which as LAD with extensive collaterals. Circumflex and left main did not show any significant stenosis. RCA is chronically occluded with good hymw-[id number]-unkkh collaterals. Vitals/I&O/Wt Last Vital Signs Temp 99.3 F 07/12/21 07:22 Pulse 73 07/12/21 07:22 Resp 19 H 07/12/21 07:22 BP 147/79 07/12/21 07:22 Pulse Ox 94 07/12/21 07:22 07/11/21 07/12/21 07/12/21 22:59 06:59 14:59 Intake Total 361.045 / 361.045 0 / 0 Balance 361.045 / 361.045 0 / 0 Weight last 48 hrs Weight 130 lb 14.4 oz Weight 130 lb 14.4 oz Weight 133 lb Physical Exam Chest: OTHER: GENERAL: Patient is alert, awake and oriented x3. NECK: No jugular vein distension. HEENT: No cyanosis. No icterus. No pallor. HEART: Regular S1 and S2. No murmur, rub or gallop. LUNGS: Clear to auscultate bilaterally. ABDOMEN: Soft, nontender and nondistended. Positive bowel sounds. No guarding, rebound or tenderness. CENTRAL NERVOUS SYSTEM: Grossly nonfocal. EXTREMITIES: Lower extremities without edema bilaterally. Data : 07/12/21 00:50 07/12/21 00:50 A&P Assessment and plan (1) NSTEMI (non-ST elevated myocardial infarction): Status post PCI to proximal LAD. She was noted to have chronically occluded atretic mid LAD but large diagonal branch which serves as LAD with extensive collaterals in the region of LAD. Circumflex and left main did not show any significant stenosis. RCA is chronically occluded with good [id number] collaterals. Overall good angiographic result was achieved RONEY-3 flow was established. Continue aspirin statin beta-geo and Plavix. Status: Acute (2) Hypertension: Well-controlled continue medicine. Status: Acute Attestations Medical Necessity Statement*: I am expecting her stay to cross more than 2 midnights. Coding Level of Care Code Acute Manager Laundry for [facility] Diagnoses NSTEMI (non-ST elevated myocardial infarction) I21.4 Hypertension I10
[2021-07-12] MEDS: clopidogrel 75 mg Tablet PO (11:20)
[2021-07-12 13:23] LABS: Partial Thromboplastin Time > 250.0 SECONDS (23.9-36.7)
--- NOTE | 2021-07-12 14:16 | PC.NURSE ---
Patient attempted to urinate in bedpan without success. Used bladder scanner to assess patient. Scans reveal 476-[address] Gonzales. Received order for vargas catheter placement.
[2021-07-12 16:24] LABS: Partial Thromboplastin Time 80.8 SECONDS (23.9-36.7)
[2021-07-12] MEDS: nitroglycerin 1 gm/inch oint Pkt 0.5 INCH TOPICAL (20:37)
[2021-07-12] MEDS: atorvastatin 40 mg Tablet PO (20:37)
[2021-07-12] MEDS: sodium chloride 0.45% 1,000 ML 100 ML IV (20:38)
[2021-07-13] VITALS (13 sets, daily range): BP systolic 145–168; BP diastolic 61–88; PULSE 72–101; RESP 17–24; TEMP 35.9–36.2; O2SAT 91–97
[2021-07-13] MEDS: nitroglycerin 1 gm/inch oint Pkt 0.5 INCH TOPICAL (00:59)
--- NOTE | 2021-07-13 01:14 | PC.NURSE ---
Sheath removed 1929, 07/12/2021. Vitals taken q15 and patient educated to not get up. No signs of hematoma, bleeding or clotting. Continous monitoring in place.
[2021-07-13] MEDS: spironolactone 25 mg Tablet PO (05:07)
[2021-07-13] MEDS: sodium chloride 0.9% 1,000 ML 50 ML IV (05:09)
[2021-07-13] MEDS: acetaminophen 325 mg Tablet 650 MG PO (05:42)
[2021-07-13 05:52] LABS: Basophils % 0.4 %; Eosinophils # 0.1 10^3/uL (0.0-0.8); Eosinophils % 1.5 %; Hematocrit 36.3 % (37.0-47.0); Hemoglobin 11.9 g/dL (11.5-15.3); Lymphocytes # 2.1 10^3/uL (0.8-4.8); Lymphocytes % 23.3 %; Mean Corpuscular HGB Conc 32.8 g/dL (30.0-36.0); Mean Corpuscular Hemoglobin 34.6 pg (28.0-34.0); Mean Corpuscular Volume 105.5 fl (81-99); Mean Platelet Volume 10.4 fL (7.4-10.4); Monocytes # 0.7 10^3/uL (0.2-0.9); Monocytes % 8.2 %; Neutrophils # 5.99 10^3/uL (1.8-7.7); Neutrophils % 66.4 %; Nucleated Red Blood Cells % 0 %; Platelet Count 196 10^3/cmm (130-400); Red Blood Count 3.44 10^6/uL (4.1-5.3); Red Cell Distribution Width 12.2 % (12.1-15.1)
[2021-07-13 06:45] LABS: Anion Gap 12.2 (5-19); Blood Urea Nitrogen 12 mg/dL (8-23); Calcium 7.9 mg/dL (8.5-10.5); Carbon Dioxide 24 mmol/L (22-29); Chloride 108 mmol/L (98-107); Glucose 115 mg/dL (65-115); Osmolality Calculated 291 mOsm/kg (285-295); Potassium 4.2 mmol/L (3.5-5.1); Sodium 140 mmol/L (136-145)
--- NOTE | 2021-07-13 08:35 | PC.NURSE ---
Patient is drinking coffee
[2021-07-13] MEDS: atenolol 50 mg Tablet 12.5 MG PO (08:51)
[2021-07-13] MEDS: clopidogrel 75 mg Tablet PO (08:51)
[2021-07-13] MEDS: pantoprazole DR 40 mg Tablet PO (08:51)
[2021-07-13] MEDS: aspirin 81 mg EC Tablet PO (08:51)
--- NOTE | 2021-07-13 14:31 | PM.PN ---
Subjective Subjective: Interval history: Denies any complaint groin looks good. Blood pressure running high will optimize her medicine. Vitals/I&O/Wt Last Vital Signs Temp 97.2 F L 07/13/21 11:36 Pulse 79 07/13/21 11:36 Resp 20 H 07/13/21 11:36 BP 168/88 07/13/21 11:36 Pulse Ox 97 07/13/21 11:36 07/12/21 07/13/21 07/13/21 22:59 06:59 14:59 Intake Total 1000 / 1360 1120 / 1120 Output Total 640 / 640 1000 / 1640 Balance -640 / -280 0 / -280 1120 / 1120 Weight last 48 hrs Weight 139 lb 4.8 oz Weight 130 lb 14.4 oz Weight 130 lb 14.4 oz Physical Exam Chest: OTHER: GENERAL: Patient is alert, awake and oriented x3. NECK: No jugular vein distension. HEENT: No cyanosis. No icterus. No pallor. HEART: Regular S1 and S2. No murmur, rub or gallop. LUNGS: Clear to auscultate bilaterally. ABDOMEN: Soft, nontender and nondistended. Positive bowel sounds. No guarding, rebound or tenderness. CENTRAL NERVOUS SYSTEM: Grossly nonfocal. EXTREMITIES: Lower extremities without edema bilaterally. Urinary Catheter Management: Cavanaugh Latex Free: Cath Placed During This Visit: yes Reason for Continuing Indwelling Catheter: Acute Urinary Retention or Obstruction Urinary Catheter Date of Insertion: 07/12/21 Urinary Catheter Time of Insertion: 14:00 Data : 07/13/21 04:17 07/13/21 04:17 A&P Assessment and plan (1) NSTEMI (non-ST elevated myocardial infarction): Status post PCI to proximal LAD. She was noted to have chronically occluded atretic mid LAD but large diagonal branch which serves as LAD with extensive collaterals in the region of LAD. Circumflex and left main did not show any significant stenosis. RCA is chronically occluded with good wwch-ju-rbnhs collaterals. Overall good angiographic result was achieved RONEY-3 flow was established. Continue aspirin statin beta-geo and Plavix. Continue aspirin statin aspirin Plavix beta-geo, no hematoma right groin looks good. Patient has history of nosebleed advised to use humidifier and [place] nasal spray in case of extensive bleeding from the nose she can stop aspirin but not Plavix. She needs to follow-up with ENT if needed. We will see her back in the cardiology clinic with nurse practitioner Ms. Aide Mast in 7 days. She is going to follow-up with Dr. Munoz in 6 to 8 weeks Status: Acute (2) Hypertension: Well-controlled continue medicine. Status: Acute Attestations Medical Necessity Statement*: from a cardiovascular perspective patient can be discharged home Coding Level of Care Code Established Pt Acute Flotation Tender Helper for g Fwd Patient Type Established History Detailed Exam Detailed Medical Decision Making Moderate Complexity Diagnoses NSTEMI (non-ST elevated myocardial infarction) I21.4 Hypertension I10
--- NOTE | 2021-07-13 15:50 | PM.DCS ---
Discharge Providers Date of Admission: 07/11/21 15:37 Date of Discharge: July 13, 2021 Attending Provider at Admission: Ludy Centeno MD Attending Provider at Discharge: Ludy Centeno MD Primary Care Provider: GARIMA Le Diagnoses at Discharge Discharge Diagnosis (1) NSTEMI (non-ST elevated myocardial infarction): Status: Acute (2) Hypertension: Status: Acute Reason for Visit Reason for Visit: Pain across chest, stress test yesterday Brief History: 86-year-old lady with an abnormal stress test 1 day prior to hospital admission presented with chest pain. Hospital Course Hospital Course During course of evaluation patient was found to have a non-ST elevation MN with positive troponins and EKG changes with ST segment depression. She had an abnormal stress test 1 day prior. Underwent cardiac cath yesterday and she was noted to have a chronically occluded atretic mid LAD but large diagonal branch and extensive collaterals. Circumflex and left main did not show any significant stenosis. RCA was chronically occluded with good [id number] collaterals. She underwent PCI to proximal LAD, overall good angiographic result achieved with RONEY III flow established. Recommendations to continue statin beta-geo and Plavix at discharge. Chest pain is completely resolved at the time of discharge. Denies any dyspnea palpitations or syncope. Eager to return home today. Physical Exam Const: COMMON NORMALS: no acute distress, average body habitus, patient oriented x3, no limitations, healthy appearing, alert and well nourished HENMT: COMMON NORMALS: normocephalic and atraumatic HEAD & SCALP: normocephalic and atraumatic Eye: COMMON NORMALS: Equal, round and reactive pupils present, EOMs intact bilaterally, conjunctivae normal and no scleral icterus CONJUNCTIVA: Yes conjunctivae normal PUPIL: Yes Equal, round and reactive pupils present Neck/C-Spine: COMMON NORMALS: no JVD Resp: COMMON NORMALS: normal respiratory effort, No retractions, No use of accessory muscles, clear to auscultation bilaterally and percussion normal AUSCULTATION: clear to auscultation bilaterally PERCUSSION: percussion normal Cardio: COMMON NORMALS: no JVD, regular rate, regular rhythm, S1 normal heart sound present, S2 normal heart sound present, No gallops present (Cardio), No clicks present (Cardio), No murmurs present (Cardio), No rub (Cardio) and Peripheral pulses 2+ throughout RATE: regular rate RHYTHM: regular rhythm HEART SOUNDS: S1 normal heart sound present and S2 normal heart sound present PERIPHERAL PULSES: Peripheral pulses 2+ throughout GI: COMMON NORMALS: Normal to inspection, nondistended, normoactive bowel sounds present, Soft to palpation, non-tender, No hepatosplenomegaly present, no masses and no bruits PALPATION: Yes Soft to palpation and Yes No hepatosplenomegaly present Extremity: COMMON NORMALS: normal to inspection, full ROM, capillary refill normal, no joint enlargement, no clubbing, cyanosis or edema, no calf tenderness and no pedal edema Neuro: COMMON NORMALS: patient oriented x3, CN's II-XII intact bilaterally, moves all extremities, no focal motor deficits, no sensory deficits noted, deep tendon reflexes 2+ bilaterally and gait normal SENSORIUM/ORIENTATION: Yes alert Psych: COMMON NORMALS: mental status grossly normal, Normal thought process present, cooperative, normal affect, speech normal, activity/motor behavior normal, denies hallucinations, denies homicidal ideation and denies suicidal ideation SPEECH: Yes normal speech THOUGHT PROCESS: Normal thought process present Skin: COMMON NORMALS: no rashes or lesions noted, no wounds, turgor normal, no jaundice, no petechiae and no mottling GENERAL SKIN EXAM: no rashes or lesions noted and turgor normal Urinary Catheter Management: Cavanaugh Latex Free: Cath Placed During This Visit: yes, but has since been removed by the nurse Reason for Continuing Indwelling Catheter: Acute Urinary Retention or Obstruction Urinary Catheter Date of Insertion: 07/12/21 Urinary Catheter Time of Insertion: 14:00 Date Urinary Catheter Removed: 07/13/21 Time Urinary Catheter Discontinued: 08:00 Discharge Data Studies Completed and Pending Completed Studies During Hospitalization Category Date Time Status XR chest 1V portable [id number] Urgent Exams 07/11/21 11:09 Completed Pending at discharge Category Date Time Status [employer] request for service Routine Exams 07/12/21 07:53 Taken Radiology Impressions Chest X-Ray 07/11/21 11:09 IMPRESSION: No acute cardiopulmonary disease. Stable chest. Laboratory Results WBC 9.0 10^3/uL (4.0-10.0) 07/13/21 04:17 RBC 3.44 10^6/uL (4.1-5.3) L 07/13/21 04:17 Hgb 11.9 g/dL (11.5-15.3) 07/13/21 04:17 Hct 36.3 % (37.0-47.0) L 07/13/21 04:17 MCV 105.5 fl (81-99) H 07/13/21 04:17 MCH 34.6 pg (28.0-34.0) H 07/13/21 04:17 MCHC 32.8 g/dL (30.0-36.0) 07/13/21 04:17 RDW 12.2 % (12.1-15.1) 07/13/21 04:17 Plt Count 196 10^3/cmm (130-400) 07/13/21 04:17 MPV 10.4 fL (7.4-10.4) 07/13/21 04:17 Neut % (Auto) 66.4 % 07/13/21 04:17 Lymph % (Auto) 23.3 % 07/13/21 04:17 Burke % (Auto) 8.2 % 07/13/21 04:17 Eos % (Auto) 1.5 % 07/13/21 04:17 Baso % (Auto) 0.4 % 07/13/21 04:17 Neut # (Auto) 5.99 10^3/uL (1.8-7.7) 07/13/21 04:17 Lymph # (Auto) 2.1 10^3/uL (0.8-4.8) 07/13/21 04:17 Burke # (Auto) 0.7 10^3/uL (0.2-0.9) 07/13/21 04:17 Eos # (Auto) 0.1 10^3/uL (0.0-0.8) 07/13/21 04:17 Baso # (Auto) 0.0 10^3/uL (0.0-0.1) 07/13/21 04:17 Nucleated RBC % (auto) 0 % 07/13/21 04:17 Nucleated RBCs # 0.0 /100WBC 07/13/21 04:17 APTT 34.0 SECONDS (23.9-36.7) D 07/12/21 18:10 Sodium 140 mmol/L (136-145) 07/13/21 04:17 Potassium 4.2 mmol/L (3.5-5.1) 07/13/21 04:17 Chloride 108 mmol/L (98-107) H 07/13/21 04:17 Carbon Dioxide 24 mmol/L (22-29) 07/13/21 04:17 Anion Gap 12.2 (5-19) 07/13/21 04:17 BUN 12 mg/dL (8-23) 07/13/21 04:17 Creatinine 0.7 mg/dL (0.5-0.9) 07/13/21 04:17 GFR Calculation Not Reportable 07/13/21 04:17 Glucose 115 mg/dL (65-115) 07/13/21 04:17 Estimat Average Glucose 111 07/11/21 11:23 Hemoglobin A1c 5.5 % (4.0-6.0) 07/11/21 11:23 Calculated Osmolality 291 mOsm/kg (285-295) 07/13/21 04:17 Calcium 7.9 mg/dL (8.5-10.5) L 07/13/21 04:17 Total Bilirubin 0.3 mg/dL (0.15-1.2) 07/12/21 00:50 AST 33 U/L (0-32) H 07/12/21 00:50 ALT 18 U/L (0-33) 07/12/21 00:50 Alkaline Phosphatase 48 IU/L (35-105) 07/12/21 00:50 Troponin T Baseline 445 ng/L (0-10) H* 07/11/21 12:04 Troponin T 120 Minute 567.8 ng/L (0-10) H 07/11/21 14:24 Delta Troponin T 122.8 ABS# (0-10) H* 07/11/21 14:24 Troponin T Hi Sens 6Hr 597.6 ng/L (0-10) H 07/11/21 18:40 Troponin T Hi Sens 6Hr Delta 152.6 ng/L (0-12) H* 07/11/21 18:40 NT-Pro-B Natriuret Pep 1993 pg/mL (0-450) H 07/11/21 12:04 Total Protein 5.5 g/dL (6.6-8.7) L 07/12/21 00:50 Albumin 3.4 g/dL (3.5-5.2) L 07/12/21 00:50 Globulin 2.1 g/dL (1.3-4.6) 07/12/21 00:50 Triglycerides 108 mg/dL (0-150) 07/11/21 12:04 Cholesterol 203 mg/dL (0-200) H 07/11/21 12:04 LDL Cholesterol, Calc 143 mg/dL (50-129) H 07/11/21 12:04 HDL Cholesterol 38 mg/dL (60-100) L 07/11/21 12:04 LDL/HDL Ratio 3.76 RATIO (0.00-3.22) H 07/11/21 12:04 Cholesterol/HDL Ratio 5.34 mg/dL (0.0-4.40) H 07/11/21 12:04 Vitals Last Vital Signs Temp 97.2 F L 07/13/21 14:47 Pulse 79 07/13/21 14:47 Resp 20 H 07/13/21 14:47 BP 168/88 07/13/21 14:47 Pulse Ox 97 07/13/21 14:47 Discharge Plan Discharge Patient Disposition: Home Condition: Stable Prescriptions: New atorvastatin 40 mg Tablet 40 mg PO BEDTIME Qty: 30 3RF clopidogrel 75 mg Tablet 75 mg PO DAILY Qty: 90 4RF aspirin 81 mg Tablet,Delayed Release (Dr/Ec) 81 mg PO DAILY Qty: 90 3RF lisinopril 5 mg tablet 5 mg PO DAILY Qty: 30 5RF Protonix 40 mg tablet,delayed release (DR/EC) 40 mg PO DAILY Qty: 90 4RF Continued cetirizine 10 mg tablet 10 mg PO EVERY OTHER DAY 0RF atenolol 25 mg tablet 12.5 mg PO QAM 0RF spironolactone 25 mg tablet 25 mg PO QAM 0RF ibuprofen 200 mg Tablet 400 mg PO BID@,22 0RF Colace 100 mg Capsule 100 mg PO EVERY OTHER DAY PRN (Reason: Constipation) 0RF omeprazole 20 mg capsule,delayed release(DR/EC) 20 mg PO DAILY@12 0RF fluticasone propionate 50 mcg/actuation spray,suspension See Rx Instructions .ROUTE .COMPLEX 0RF Rx Instructions: 2 SPRAYS IN THE RIGHT NARE AND 1 SPRAY IN THE LEFT NARE EVERY AM dicyclomine 10 mg capsule 10 mg PO QAM 0RF Centrum Silver Women 8 mg iron-400 mcg-300 mcg Tablet 1 tab PO DAILY@12 0RF Discharge Orders: Discharge Order (Routine); Ordered 07/13/21 Ordered By: Onofre Gonzales Referrals: Henry Munoz M.D [Physician] - 2 months ([facility] will be calliing to schedule a cardiology followup to be seen in 6 to 8 weeks. If you don't hear from them by Wednesday, please give them a call. Thank you) Aide Mast FNP [Nurse Practitioner] - 1 week ([facility] will be calliing to schedule a post procedure followup to be seen in 7 to 10 days. If you don't hear from them by Wednesday, please give them a call. Thank you) Noni Brantley FNP [Primary Care Provider] - 1 week (Noni Brantley's office will be calliing to schedule a hospital followup to be seen in 1 week. If you don't hear from them by Wednesday, please give them a call. Thank you) Discharge Diet: Cardiac, Low Salt and Low Cholesterol Discharge Activity: Increase activity as tolerated Patient Instructions: Lisinopril (By mouth) (Prinivil, Zestril), Aspirin (By mouth), Atorvastatin (By mouth) (Lipitor), Clopidogrel (By mouth) (Plavix), Pantoprazole (By mouth) (Protonix), Heart Attack (DC), Opioid Safety, Post Angiogram Home Care Instructions, Post Heart Attack Stoplight Activity Restrictions/Additional Instructions: Follow-up with Ms. Aide Mast in 7 to 10 days. Follow-up with Dr. Munoz in 6 to 8 weeks Discharge Attestations Time Spent in Discharge Care*: greater than 30 min Quality Metrics Clinical Quality Measures [ No reported AMI, CVA or VTE this stay] Coding Level of Care Code Acute Chg FW DC note Diagnoses NSTEMI (non-ST elevated myocardial infarction) I21.4 Hypertension I10
== END 2021-07-13 15:39 | disposition home or self-care (01) | DRG 247 ==
LOC: ER 13:17 → CSU 16:31
PROVIDERS: Emergency Medicine; Family Medicine; Internal Medicine Cardiovascular Disease; Admitting Provider Student in an Organized Health Care Education/Training Program; Emergency Provider Family Medicine; PCP Nurse Practitioner Family; Visit Provider Student in an Organized Health Care Education/Training Program
PROC: 027034Z Dilation of Coronary Artery, One Artery with Drug-eluting Intraluminal Device, Percutaneous Approach (ICD-10-PCS; principal; 2021-07-12 08:30)
PROC: 027034Z Dilation of Coronary Artery, One Artery with Drug-eluting Intraluminal Device, Percutaneous Approach (ICD-10-PCS; 2021-07-12 08:30)
DX: I21.4 Non-ST elevation (NSTEMI) myocardial infarction (principal); I10 Essential (primary) hypertension; I25.119 Atherosclerotic heart disease of native coronary artery with unspecified angina pectoris; E78.5 Hyperlipidemia, unspecified
CPT/HCPCS: 36415; 51702; 71045; 78452; 80048; 80053; 80061; 83036; 83880; 84484; 85025; 85347; 85730; 93005; 93017; 93454; 96365; 96366; 99285; A9500; C1725; C1769; C1874; C1887; C1894; C9600; J1644; J2250; J2785; J3010; J3490; J7030; Q0163; Q9967

== ENCOUNTER → 2021-07-22 10:45 | Outpatient (BNVA) | payer MEDICARE, MEDICAID, SELFPAY | PROVIDERS: PCP Nurse Practitioner Family; Visit Provider Nurse Practitioner Family | DX: Z09 Encounter for follow-up examination after completed treatment for conditions other than malignant neoplasm (principal); I25.119 Atherosclerotic heart disease of native coronary artery with unspecified angina pectoris | CPT/HCPCS: 80048 ==

== ENCOUNTER 2021-08-05 07:51 | Outpatient (CLI) | payer MEDICARE, MEDICAID, SELFPAY ==
--- NOTE | 2021-08-05 07:59 | US_ITS ---
WS: [email or web address] Complete ABDOMINAL ULTRASOUND HISTORY: EPIGASTRIC PAIN/CHEST PAIN/SHORTNESS OF BREATH/BLOATING COMPARISON: 12/05/2008 Liver: 15.2 cm in length. Liver is normal size and echogenicity with no mass or intrahepatic dilatati on. Portal Vein: Normal hepatopetal flow with monophasic waveform. Gallbladder: Normally distended with no gallstones, wall thickening or pericholecystic fluid. Gallbladder wall thickness: 0.2 cm. Pancreas: Tail is nearly completely obscured by bowel gas. Body and head are normal. CBD: 0.4 cm. Right kidney: 9.2 cm x 5.8 cm x 5.3 cm. Kidney is normal size. There is very minimal prominence of t he renal pelvis. Similar to the prior study from 2005. No cortical thinning. Left kidney: 10.1 cm x 5.3 cm x 6.3 cm. No mass, cortical thickening or hydronephrosis. Spleen: Normal size and echogenicity. Abdominal aorta and IVC are within normal limits. No ascites. US/US abdomen complete* [id number] IMPRESSION: 1. Normal gallbladder. 2. Very minimal prominence of the RIGHT renal pelvis. Similar to the prior franky dy from 2008. 3. Negative liver.
== END 2021-08-05 07:52 | disposition home or self-care (01) ==
LOC: RAD 07:55
PROVIDERS: PCP Nurse Practitioner Family; Visit Provider Nurse Practitioner Family
DX: R07.9 Chest pain, unspecified (principal); R14.0 Abdominal distension (gaseous); R10.13 Epigastric pain; R06.02 Shortness of breath
CPT/HCPCS: 76700

== ENCOUNTER 2021-08-21 06:57 | Outpatient (CLI) | payer MEDICARE, MEDICAID, SELFPAY ==
--- NOTE | 2021-08-21 08:00 | NM_ITS ---
WS: [id number] NUCLEAR MEDICINE HIDA SCAN WITH GALLBLADDER EJECTION FRACTION HISTORY: R10.9 - Unspecified abdominal pain COMPARISON: Ultrasound 08/05/2021 TECHNIQUE: The patient was intravenously injected with 7.7 mCi of TC99m Mebrofenin. Immediate imaging over the right upper quadrant was followed by 5 minute image and additional images for a total of 60 minutes. Normal uptake of radiotracer throughout the liver. Activity identified in the gallbladder at 20 minutes and well distended by 60 minutes. Activity in the proximal small bowel was seen by 30 minutes. Good washout of the radiotracer from the liver by 60 minutes. The patient then drank 8 ounces of Ensure Plus. Ejection fraction at 60 minutes was 78%. Normal GB ej ection fraction is 35-75%. Post fatty meal symptoms: None. NM/NM hepatobiliary w phar* [id number] IMPRESSION: 1. Normal HIDA scan. 2. Normal gallbladder ejection fraction.
== END 2021-08-21 06:58 | disposition home or self-care (01) ==
LOC: RAD 06:58
PROVIDERS: PCP Nurse Practitioner Family; Visit Provider Surgery
DX: R10.9 Unspecified abdominal pain (principal)
CPT/HCPCS: 78227; A9537

== ENCOUNTER → 2021-08-26 14:51 | Outpatient (BNVA) | payer MEDICARE, MEDICAID, SELFPAY | PROVIDERS: PCP Nurse Practitioner Family; Visit Provider Internal Medicine | DX: Z09 Encounter for follow-up examination after completed treatment for conditions other than malignant neoplasm (principal); I25.10 Atherosclerotic heart disease of native coronary artery without angina pectoris; I25.2 Old myocardial infarction; I10 Essential (primary) hypertension | CPT/HCPCS: 99214 ==

== ENCOUNTER 2021-09-22 10:57 | Outpatient (CLI) | payer MEDICARE, MEDICAID, SELFPAY ==
--- NOTE | 2021-09-22 11:09 | CT_ITS ---
WS: [id number] CT ABDOMEN PELVIS TECHNIQUE: Contrast-enhanced CT of the abdomen and pelvis with coronal and sagittal reformatted image s. CLINICAL INFORMATION: GASTRO-ESOPHAGEAL REFLUX DZ W/O ESOPHAGITIS/NAUSEA/ANOREXIA COMPARISON: None. DLP: 920.[address] scans at [facility] use at least one of these dose optimization techniques: automated e xposure control; mA and/or kV adjustment per patient size (includes targeted exams where dose is matc hed to clinical indication); or iterative reconstruction. FINDINGS: Mild diffuse fatty infiltration liver. Normal portal vein and splenic vein. Tiny low-attenuation lesi on in the LEFT hepatic lobe likely tiny hepatic cysts. Normal portal vein and splenic vein. Gallbladd er is contracted. Normal GE junction. Slight bibasilar atelectasis. Adrenal glands are normal. Normal renal parenchymal enhancement. Bilateral peripelvic renal cysts with mild to moderate hydronephrosis RIGHT greater than LEFT. Both ureters appear decompressed. Urine distended bladder. Normal pancreatic parenchymal enhancement. Celiac and SMA are patent. Aortic calcification. RIGHT FERN degrades images in the pelvis. Fat-containing umbilical hernia. No herniated bowel. Urine distended bladder. Evidence of prior postoperative changes bladder suspension procedure. Lumbar scoliosis. Multilevel degenerative disc disease in the lumbar spine. Chronic appearing anterio r wedging at T12. CT/CT abdomen pelvis w con* [id number] IMPRESSION: 1. Mild diffuse fatty infiltration of the liver. 2. Normal GE junction. 3. Cystic dilatation of the bilateral renal pelvis appears represent mild to m oderate hydronephrosis with superimposed peripelvic renal cysts. Ureters are de compressed. Recommend correlation with renal function.. 4. Fat-containing umbilical hernia. No herniated bowel. 5. Urine distended bladder. 6. Lumbar scoliosis with multilevel degenerative disc disease. Chronic appeari ng anterior wedging T12.
[2021-09-22] MEDS: iohexol 300 mg/mL 50 mL Btl PO (11:31)
[2021-09-22] MEDS: iohexol 300 mg/mL 100 mL Btl IV ×2 (11:31→13:07)
== END 2021-09-22 10:58 | disposition home or self-care (01) ==
LOC: RAD 11:00
PROVIDERS: PCP Nurse Practitioner Family; Visit Provider Nurse Practitioner Family
DX: R10.9 Unspecified abdominal pain (principal); K21.9 Gastro-esophageal reflux disease without esophagitis; R63.0 Anorexia; R11.0 Nausea; K76.0 Fatty (change of) liver, not elsewhere classified; K42.9 Umbilical hernia without obstruction or gangrene; M41.86 Other forms of scoliosis, lumbar region
CPT/HCPCS: 74177

== ENCOUNTER 2021-09-30 10:49 | Outpatient (CLI) | payer MEDICARE, MEDICAID, SELFPAY ==
--- NOTE | 2021-09-30 11:12 | XR_ITS ---
WS: [email or web address] Exam: XR hip LT 2-3V wo/w pel* [id number] Date/Time of Exam: 09/30/2021 11:15 AM Reason For Exam: PAIN IN LEFT HIP Comparison 02/17/2018. No acute fracture or dislocation. Moderate degenerative change of the joint compartment. Osteopenia. Intact right total hip replacement. Old fracture of the right inferior pubic ramus. Postoperative homer nges in the central lower pelvis. XR/XR hip LT 2-3V wo/w pel* [id number] IMPRESSION: 1. Moderate DJD of the left hip. No fracture noted. Osteopenia.
== END 2021-09-30 10:50 | disposition home or self-care (01) ==
LOC: RAD 10:54
PROVIDERS: PCP Nurse Practitioner Family; Visit Provider Nurse Practitioner Family
DX: M16.12 Unilateral primary osteoarthritis, left hip (principal)
CPT/HCPCS: 73502

== ENCOUNTER → 2021-12-16 14:31 | Outpatient (BNVA) | payer MEDICARE, MEDICAID, SELFPAY | PROVIDERS: PCP Nurse Practitioner Family; Visit Provider Internal Medicine Cardiovascular Disease | DX: I25.10 Atherosclerotic heart disease of native coronary artery without angina pectoris (principal); I10 Essential (primary) hypertension; I25.2 Old myocardial infarction; R07.9 Chest pain, unspecified; R05.8 Other specified cough; T46.4X5A Adverse effect of angiotensin-converting-enzyme inhibitors, initial encounter | CPT/HCPCS: 99213 ==

== ENCOUNTER → 2022-02-24 15:11 | Outpatient (BNVA) | payer MEDICARE, MEDICAID, SELFPAY | PROVIDERS: PCP Nurse Practitioner Family; Visit Provider Internal Medicine | DX: I25.10 Atherosclerotic heart disease of native coronary artery without angina pectoris (principal); I21.4 Non-ST elevation (NSTEMI) myocardial infarction; I10 Essential (primary) hypertension | CPT/HCPCS: 99214 ==

== ENCOUNTER → 2022-08-28 10:41 | Outpatient (BNVA) | payer MEDICARE, MEDICAID, SELFPAY | PROVIDERS: PCP Nurse Practitioner Family; Visit Provider Nurse Practitioner Family | DX: I25.10 Atherosclerotic heart disease of native coronary artery without angina pectoris (principal); I10 Essential (primary) hypertension; Z79.82 Long term (current) use of aspirin | CPT/HCPCS: 99214 ==

== ENCOUNTER → 2023-02-26 11:13 | Outpatient (BNVA) | payer MEDICARE, MEDICAID, SELFPAY | PROVIDERS: PCP Nurse Practitioner Family; Visit Provider Internal Medicine | DX: I25.10 Atherosclerotic heart disease of native coronary artery without angina pectoris (principal); I10 Essential (primary) hypertension | CPT/HCPCS: 99214 ==

== ENCOUNTER 2023-03-15 09:23 | Outpatient (CLI) | payer MEDICARE, MEDICAID, SELFPAY ==
--- NOTE | 2023-03-15 09:45 | USCV_ITS ---
Reddy Chen Age: 87 Gender: F : 1935 Exam Date: 03/15/2023 09:48 Ordering Phys: Henyr Munoz M.D ([email or web address]) Technologist: Hattie Burns [place] [facility] [place]: carotid bruit Risk Factors: Previous Vascular Surgery: Right Brachial BP: / Left Brachial BP: / Right Left Velocity (cm/s) Spectral Plaque Velocity (cm/s) Spectral Plaque Syst/Diast Broadening Syst/Diast Broadening 43.40/ 5.30 Prox CCA 76.10 / 14.00 62.40/ 10.50 Mid CCA 75.40 / 13.20 78.20/ 7.20 Edison Distal CCA 69.90 / 18.60 57.27/ 12.27 Prox ICA 60.60 / 9.30 59.80/ 12.80 Mid ICA 79.20 / 17.90 55.50/ 12.80 Distal ICA 118.00/ 27.60 83.75 ECA 100.20 0.78 ICA/CCA 1.55 Antegrade Vertebral Antegrade 50.90/ 7.80 cm/s 97.00/ 23.20 cm/s Tri Subclavian Tri 110.3 87.10 0 CONCLUSIONS Right ICA stenosis <50%. Moderate calcified atheromatous plaque right carotid bulb/ICA. Left ICA stenosis <50%. Mild atheromatous plaque left carotid bulb/ICA. Normal antegrade Doppler flow noted in the right vertebral artery. Normal antegrade Doppler flow noted in the left vertebral artery. Yovany Wynne MD (Electronically Signed) Final Date: 15 March 2023 12:55 S
== END 2023-03-15 09:24 | disposition home or self-care (01) ==
PROVIDERS: PCP Nurse Practitioner Family; Visit Provider Internal Medicine
DX: R09.89 Other specified symptoms and signs involving the circulatory and respiratory systems (principal); Z09 Encounter for follow-up examination after completed treatment for conditions other than malignant neoplasm
CPT/HCPCS: 93880

== ENCOUNTER 2023-05-19 13:53 | Outpatient (CLI) | payer MEDICARE, MEDICAID, SELFPAY ==
--- NOTE | 2023-05-19 13:59 | USCV_ITS ---
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 Diminished resting LORI and TBI on the left side, suggestive of moderate peripheral artery disease No similar previous studies are available for comparison Dr Sheba Cortez MD [facility] (Electronically Signed) Final Date: 21 May 2023 12:14 S
== END 2023-05-19 13:54 | disposition home or self-care (01) ==
LOC: RAD 13:53
PROVIDERS: PCP Nurse Practitioner Family; Visit Provider Nurse Practitioner Family
DX: M79.662 Pain in left lower leg (principal)
CPT/HCPCS: 93922

== ENCOUNTER → 2023-08-27 10:41 | Outpatient (BNVA) | payer MEDICARE, MEDICAID, SELFPAY | PROVIDERS: PCP Nurse Practitioner Family; Visit Provider Nurse Practitioner Family | DX: I10 Essential (primary) hypertension (principal); I25.10 Atherosclerotic heart disease of native coronary artery without angina pectoris | CPT/HCPCS: 99214 ==

== ENCOUNTER 2024-02-17 11:26 | Outpatient (CLI) | payer MEDICARE, MEDICAID, SELFPAY ==
--- NOTE | 2024-02-17 11:33 | XR_ITS ---
WS: [id number] Examination: XR cervical spine 4-5V [id number] Reason for Exam: STIFFNESS OF UNSPECIFIED JOINT Date: 02/17/2024 Comparison: None. Findings: Diffusely the visualized bone density is diminished. The LUIS FELIPE is intact. There is no prevertebral swelling. There is no wedging or compression. There is mild anterior offset at C2-3 and C4-5. This appears to subtly increased on flexion. Significant degenerative disc disease is present at C3-4 with narrowing along with anterior and poste rior osteophytes. Less severe changes are noted at C4-5. The disc detail at C5-6 and C6-7 is limited. XR/XR cervical spine 4-5V [id number] Impression: There is osteopenia. There is anterior offset at C2-3 and C4-5. Diffuse degenerative disc disease is present.
== END 2024-02-17 11:27 | disposition home or self-care (01) ==
LOC: RAD 11:30
PROVIDERS: PCP Nurse Practitioner Family; Visit Provider Nurse Practitioner Family
DX: M50.321 Other cervical disc degeneration at C4-C5 level (principal); M25.78 Osteophyte, vertebrae; M25.60 Stiffness of unspecified joint, not elsewhere classified
CPT/HCPCS: 72050

== ENCOUNTER → 2024-03-06 12:49 | Outpatient (BNVA) | payer MEDICARE, MEDICAID, SELFPAY | PROVIDERS: PCP Nurse Practitioner Family; Visit Provider Internal Medicine | DX: I25.10 Atherosclerotic heart disease of native coronary artery without angina pectoris (principal); I10 Essential (primary) hypertension | CPT/HCPCS: 99213 ==

== ENCOUNTER → 2024-04-04 13:05 | Outpatient (BNVA) | payer MEDICARE, MEDICAID, SELFPAY | PROVIDERS: PCP Nurse Practitioner Family; Visit Provider Orthopaedic Surgery | DX: M54.2 Cervicalgia (principal) | CPT/HCPCS: 72050; 99203 ==

== ENCOUNTER 2024-06-28 15:23 | Outpatient (CLI) | payer MEDICARE, MEDICAID, SELFPAY ==
--- NOTE | 2024-06-28 15:29 | XR_ITS ---
WS: [email or web address] XR chest 2V* [id number] REASON FOR EXAM: acute upper respiratory infection FINDINGS: The chest is unchanged compared to 07/11/2021. Moderate tortuosity of the thoracic aorta. Widening of the upper mediastinum secondary to tortuosity of the innominate artery. Normal heart size. Calcified granulomatous disease bilaterally. No acute pulmonary parenchymal or pleural abnormality. Mild thoracic scoliosis with severe degenerative spondylosis. Bilaterally both shoulders demonstrate a configuration compatible with complete rotator cuff tendon tear and subsequent severe osteoarthriti s. XR/XR chest 2V* [id number] IMPRESSION: Stable chest without acute abnormality.
== END 2024-06-28 15:24 | disposition home or self-care (01) ==
LOC: RAD 15:25
PROVIDERS: PCP Nurse Practitioner Family; Visit Provider Nurse Practitioner Family
DX: J06.9 Acute upper respiratory infection, unspecified (principal); R06.2 Wheezing; R06.02 Shortness of breath; Q25.46 Tortuous aortic arch; R93.5 Abnormal findings on diagnostic imaging of other abdominal regions, including retroperitoneum; D71 Functional disorders of polymorphonuclear neutrophils; M41.84 Other forms of scoliosis, thoracic region; M47.894 Other spondylosis, thoracic region; R93.6 Abnormal findings on diagnostic imaging of limbs
CPT/HCPCS: 71046

== ENCOUNTER → 2024-09-11 14:58 | Outpatient (BNVA) | payer MEDICARE, MEDICAID, SELFPAY | PROVIDERS: PCP Nurse Practitioner Family; Visit Provider Internal Medicine | DX: I25.10 Atherosclerotic heart disease of native coronary artery without angina pectoris (principal); I10 Essential (primary) hypertension | CPT/HCPCS: 99214 ==

== ENCOUNTER 2025-03-01 12:23 | Outpatient (CLI) | payer MEDICARE, MEDICAID, SELFPAY ==
--- NOTE | 2025-03-01 12:31 | XR_ITS ---
WS: [email or web address] XR knee RT 1-2V [id number] REASON FOR EXAM: KNEE PAIN FINDINGS: Small joint effusion. No fracture or focal bone lesion. Mild narrowing of the medial and lateral knee joint space with mild subchondral sclerosis and osteophytosis. Mild narrowing of the patellofemoral joint with mild subchondral sclerosis and osteophytosis of the patella. Possible loose body in the posterior joint space. XR/XR knee RT 1-2V [id number] IMPRESSION: Mild osteoarthritis as above.
== END 2025-03-01 12:24 | disposition home or self-care (01) ==
LOC: RAD 12:26
PROVIDERS: PCP Nurse Practitioner Family; Visit Provider Nurse Practitioner Family
DX: M17.11 Unilateral primary osteoarthritis, right knee (principal)
CPT/HCPCS: 73560

== ENCOUNTER → 2025-03-15 15:06 | Outpatient (BNVA) | payer OTHER, MEDICAID, SELFPAY | PROVIDERS: PCP Nurse Practitioner Family; Visit Provider Internal Medicine | DX: I25.10 Atherosclerotic heart disease of native coronary artery without angina pectoris (principal); I10 Essential (primary) hypertension | CPT/HCPCS: 99213 ==